=== PATIENT | female | born 1975 | race Caucasian/White ===

== ENCOUNTER 2020-04-26 10:32 | Emergency (ER) | payer MEDICAID ==
[~2020-04-26] VITALS: Ht 170.2 cm; Wt 79.9 kg
[2020-04-26 10:42] VITALS: BP 143/98
--- NOTE | 2020-04-26 10:48 | NUR ---
Pt taken to bed 5.
--- NOTE | 2020-04-26 11:10 | NUR ---
DR. DONNELLY AT BEDSIDE.
--- NOTE | 2020-04-26 11:22 | NUR ---
DPatient discharged with v/s stable. Written and verbal after care instructions given and explained. Patient alert, oriented and verbalized understanding of instructions. Ambulatory with steady gait. All questions addressed prior to discharge. ID band removed. Patient advised to follow up with PMD. Rx of Ambien and Bupropion given. Patient educated on indication of medication including possible reaction and side effects. Opportunity to ask questions provided and answered. Addendum: 04/26/20 at 1122 by [facility] No nursing care provided in our ER.
== END 2020-04-26 11:22 | disposition home or self-care (01) ==
LOC: MED 10:32
DX: R03.0 Elevated blood-pressure reading, without diagnosis of hypertension (principal); Z76.0 Encounter for issue of repeat prescription; Z88.8 Allergy status to other drugs, medicaments and biological substances
CPT/HCPCS: 99281; 99283